=== PATIENT | male | born 1990 | race African-American/Black ===

== ENCOUNTER 2017-04-18 21:09 | Emergency (ER) | payer OTHER ==
[~2017-04-18] VITALS: Ht 177.8 cm; Wt 88.5 kg
--- NOTE | ~2017-04-18 | CR72 ---
[facility]. [facility] A Service of [facility] & [facility] RADIOLOGY TEXT RESULTS PATIENT: MOIRA WELSH LOCATION: SED : 88 UNIT #: [id number] AGE: [address]: Dominique Mueller MD SEX: M ORDER DR: [id number] [place] [id number] E MR#: [id number] Acc #: [id number] NAME: MOIRA WELSH : 1990 SEX: M STUDY DATE/TIME: 04/18/2017 22:58 UNIT: SED ROOM: STUDY DESCRIPTION: CR Chest Single View Portable Attending Physician: Dominique Mueller M.D. Ordering Physician: Dominique Mueller M.D. Primary Care Physician: Jaylene Butts M.D. MEDICAL IMAGING REPORT This report is preliminary unless electronic signature is present. EXAM Portable chest INDICATIONS Cough, shortness of air today. PROCEDURE Frontal view of the chest. COMPARISON: 09/05/2015 FINDINGS Heart size is within normal limits. No dense consolidation, visible pleural fluid or pneumothorax. IMPRESSION No active process Dictated by... Steven Zhong M.D. THIS IS AN ELECTRONICALLY VERIFIED REPORT Steven Zhong M.D. at 04/20/2017 10:00 PM TARIK/nilda TD: 04/19/2017 10:31 JOB #: [id number] MEDICAL IMAGING REPORT Page 1 of 1
[~2017-04-18 21:09] MED LIST: ALB/IPRATROPIUM/1 EA INH; ALBUTEROL; ALBUTEROL 0.5ML INH; ALBUTEROL17 G1 IH; ALBUTEROL17 GM INH; BACTRIM DS TABL1 TA1 PO; BENTYL10 MG PO; BENZONATATE PO; CARDIZEM60 M1 PO; COLACE PO; COMBIVENT INH14.7 GM INH; COMBIVENT14.7 GM INH; COUMADIN PO; FLAGYL PO; FLEXERIL PO; FLONASE 0.05% N16 G1; HYDROMET SYRUP480 ML PO; IBUPROFEN PO; KEFLEX500 M1 PO; LORTAB 5/500 TA1 TA2 PO; MEDROL DOSEPAK4 MG; MEDROL DOSEPAK4 MG PO; MUCINEX DM ER1 EACH PO; NEURONTIN800 MG PO; NO MEDICATIONS; OMEPRAZOLE20 M1 PO; PERCOCET 7.5-31 EACH PO; PHENERGAN25 M1 PO; PHENERGAN25 MG PO; PREDNISONE PO; PRILOSEC40 MG PO; PROAIR HFA8.5 GM IH; PROCTOFOAM-HC10 G1 MC; PROMETHAZINE HC25 MG PO; PROTONIX PO; PROVENTIL5 MG/ML IH; PROZAC PO; QVAR7.3 G1 INH; SINGULAIR PO; SYMBICORT INH; SYMBICORT80 INH; SYMBICORT80 PO; TOPROL XL100 MG PO; TUSSINMAX15 MG/5 ML PO; TYLENOL325 M1 PO; VEETIDS 500500 M1 PO; VICODIN PO; ZESTRIL5 MG PO; ZITHROMAX PO; ZITHROMAX500 M1 PO; ZITHROMAX500 MG PO; ZOCOR20 MG PO
== END 2017-04-19 01:52 | disposition home or self-care (01) ==
LOC: SED 21:09
DX: J45.909 Unspecified asthma, uncomplicated (principal); J45.901 Unspecified asthma with (acute) exacerbation; F17.200 Nicotine dependence, unspecified, uncomplicated; Z79.899 Other long term (current) drug therapy; Z88.5 Allergy status to narcotic agent; Z88.1 Allergy status to other antibiotic agents
CPT/HCPCS: 71010; 94640; 96374; 99285; J2930